=== PATIENT | male | born 1965 | race Caucasian/White ===

== ENCOUNTER 2016-08-26 21:09 | Emergency (ER) | payer SELFPAY ==
[~2016-08-26] VITALS: Wt 109.0 kg
--- NOTE | 2016-08-27 01:54 | RADRPT ---
PROCEDURE: Right foot. CLINICAL INDICATION: Pain. TECHNIQUE: Three views including AP, lateral and oblique views of the right foot were obtained. The images were reviewed on a PACS workstation. COMPARISON: None. FINDINGS: There is no fracture, dislocation or bone destruction. The joint spaces are within normal limits. Bone mineralization is within normal limits. There is no radiopaque foreign body or abnormal calcif ication. There is a small plantar calcaneal spur. IMPRESSION: No evidence of fracture. Calcaneal spur. .Rico Whitfield MD, Date Time Electronically viewed and signed by .Rico Whitfield MD, MD on 08/27/2016 01:53 .T/
[2016-08-27] MEDS ORDERED: CEPH-443 PO (02:09)
[2016-08-27 02:50] VITALS: BP 119/77; PULSE 77; RESP 20; TEMP 98.3
--- NOTE | 2016-08-27 05:10 | ERD ---
ER Documentation Chief Complaint Date/Time DATE: 08/27/16 TIME: 05:07 Chief Complaint left big toe infected x3 weeks HPI This is a 51-year-old male presenting to the emergency department for toe injury. Patient states he dropped a heavy metal device onto his right big toe about 3 weeks ago. Since then patient states his right big toenail fell off. Patient continues to have pain to the toe. Patient is concerned about infection. No loss of sensation. Denies numbness or tingling. Can move all 5 toes on right foot. ROS All systems reviewed and are negative except as per history of present illness. Medications Home Meds Active Scripts Cephalexin* (Keflex*) 500 Mg Capsule, 500 MG PO QID for 5 Days, CAP Prov:MARIPOSA MORRIS NP 08/27/16 PMhx/Soc Medical and Surgical Hx: pt denies Medical Hx, pt denies Surgical Hx History of Surgery: No (NE. DENIES MEDICAL AND SURGICL HX.) Hx Alcohol Use: No Hx Substance Use: No Hx Tobacco Use: No Smoking Status: Never smoker Physical Exam Vitals Vital Signs Date Time Temp Pulse Resp B/P Pulse Ox O2 Delivery O2 Flow Rate FiO2 08/27/16 02:50 98.3 77 20 119/77 97 Room Air 08/26/16 21:52 99.3 83 20 121/73 97 Physical Exam Const: No acute distress, alert Head: Atraumatic Eyes: Normal Conjunctiva ENT: Normal External Ears, Nose and Mouth. Neck: Full range of motion..~ No meningismus. Resp: Clear to auscultation bilaterally Cardio: Regular rate and rhythm, no murmurs Abd: Soft, non tender, non distended. Normal bowel sounds Skin: No petechiae or rashes Back: No midline or flank tenderness Ext: Sloughing of right hallux nail with debridement. mild erythema and swelling to lateral aspect of right nailbed. no surrounding erythema or discharge. no warmth. Neur: Awake and alert Psych: Normal Mood and Affect Procedures/MDM Patient: BAKARI COOK : 1965 Age: 51 Sex: M MR #: [id number] DOS: 08/27/16 0112 Ordering MD: MARIPOSA MORRIS NP Location: [facility] Room/Bed: PROCEDURE: Right foot. CLINICAL INDICATION: Pain. TECHNIQUE: Three views including AP, lateral and oblique views of the right foot were obtained. The images were reviewed on a PACS workstation. COMPARISON: None. FINDINGS: There is no fracture, dislocation or bone destruction. The joint spaces are within normal limits. Bone mineralization is within normal limits. There is no radiopaque foreign body or abnormal calcification. There is a small plantar calcaneal spur. IMPRESSION: No evidence of fracture. Calcaneal spur. MDM: 51-year-old male presents emergency department after right big toe injury. Patient dropped a heavy metal device onto right hallux. X-ray reviewed by radiologist as no acute fracture, calcaneal spur. No fevers. vital signs are stable. Low suspicion for acute dislocation, fracture, open fracture or deep space infection. Differential diagnosis includes but not limited to cellulitis and paronychia. Patient is appropriate for outpatient management will be given prescription for Keflex. Instructed patient to follow-up with primary care provider in the next 2-3 days for reassessment. Resources provided. Return to ED for any high fever , chest pain, difficulty breathing, shortness breath, wheezing, vomiting, diarrhea, abdominal pain or any new or worsening symptoms. Patient verbalizes understanding. All questions answered at discharge. Departure Diagnosis: Primary Impression: Injury of toe Encounter type: initial encounter Laterality: left Qualified Code: S99.922A - Injury of toe, left, initial encounter Condition: Stable Patient Instructions: Sprain Toe [facility] Usted se tejada hecho un examen mdico de control que le indica que no est en cade condicin que requiera tratamiento urgente en el Departamento de Emergencia. Un estudio ms profundo y el tratamiento de kovacs condicin pueden esperar sin ningn riesgo hasta que usted sea atendida/o en el consultorio de kovacs mdico o cade cl nicole. Es responsabilidad suya arreglar cade ras para el seguimiento del snow. MANEJO DE CONDICIONES NO URGENTES EN EL FUTURO 1) Si usted tiene un mdico de atencin primaria: Usted debera llamar a kovacs mdico de atencin primaria antes de venir al departamento de emergencia. Despus de las horas de consultorio, kovacs doctor o kovacs asociado/a est disponible por telfono. El mdico o enfermero de kevan en el servicio telefnico puede asesorarle por lamar medio para atender el problema, o snow contrario se puede programar cade ras. 2) Si usted no tiene un mdico de atencin primaria: Llame al mdico o clnica de referencia que aparece abajo jennifer las horas de consultorio para hacer cade ras para que le vean. CLINICAS: [facility] [phone] [facility] [phone] [facility] [phone] [address] [facility]. [place] [id number] [phone] [facility]. [place] [id number] [phone] [facility]. [phone] [address] [facility]. [facility] () Usted se tejada hecho un examen mdico de control que le indica que no est en cade condicin que requiera tratamiento urgente en el Departamento de Emergencia. Un estudio ms profundo y el tratamiento de kovacs condicin pueden esperar sin ningn riesgo hasta que usted sea atendida/o en el consultorio de kovacs mdico o cade cl nicole. Es responsabilidad suya arreglar cade ras para el seguimiento del snow. MANEJO DE CONDICIONES NO URGENTES EN EL FUTURO 1) Si usted tiene un mdico de atencin primaria: Usted debera llamar a kovacs mdico de atencin primaria antes de venir al departamento de emergencia. Despus de las horas de consultorio, kovacs doctor o kovacs asociado/a est disponible por telfono. El mdico o enfermero de kevan en el servicio telefnico puede asesorarle por lamar medio para atender el problema, o snow contrario se puede programar cade ras. 2) Si usted no tiene un mdico de atencin primaria: Llame al mdico o condado institucions de referencia que aparece abajo jennifer las horas de consultorio para hacer cade ras para que le vean. SI USTED NO PUEDE PAGAR PARA PADMA UN MEDICO puede ir a: [facility] [id number] [place] [address] [facility] [address] [place] [address] [facility] [address] [place] [address] [facility] [address] [place] [address] Additional Instructions: Llame al doctor MAANA y beltran cade RAS PARA DENTRO DE 2-3 VARGAS.Dgale a la secretaria que nosotros le instruimos hacer esta ras.Avise o llame si kovacs condicin se empeora antes de la ras. Regresa aqui si peor o no mejor. Regresar a ED por fiebre jesse, dolor en el pecho, dificultad para respirar, respiracin entrecortada, sibilancias, vmitos, diarrea, dolor abdominal o cualquier sntoma nuevo o que empeora. MARIPOSA MORRIS NP August 27, 2016 05:10
== END 2016-08-27 02:52 | disposition home or self-care (01) ==
LOC: FTE 21:09
DX: S99.922A Unspecified injury of left foot, initial encounter (principal); W20.8XXA Other cause of strike by thrown, projected or falling object, initial encounter; Y92.9 Unspecified place or not applicable
CPT/HCPCS: 73630

== ENCOUNTER 2018-12-04 22:33 | Emergency (ER) | payer MEDICAID ==
[~2018-12-04] VITALS: Ht 165.1 cm; Wt 114.1 kg
[~2018-12-04 22:33] MED LIST: CEPH-443 PO; HYDR-4011 PO; IBUP-1542 PO
[2018-12-04 23:07] VITALS: BP 137/76; PULSE 76; RESP 16; Ht 165.1 cm; Wt 114.1 kg
[2018-12-05] MEDS ORDERED: ONDANSETRON (ODT) 4 MG TAB ODT STA (01:51)
[2018-12-05] MEDS ORDERED: HYDROCODONE/APAP (5/325) TAB PO ONE (02:00)
== END 2018-12-05 03:56 | disposition home or self-care (01) ==
LOC: FTE 22:33
DX: S13.9XXA Sprain of joints and ligaments of unspecified parts of neck, initial encounter (principal); V89.2XXA Person injured in unspecified motor-vehicle accident, traffic, initial encounter
CPT/HCPCS: 70450; 72125; Z7502; Z7610